=== PATIENT | male | born 1965 | race Caucasian/White ===

== ENCOUNTER → 2017-03-31 | Outpatient (CLI) | payer BC, SELFPAY ==
--- NOTE | 2017-03-31 15:13 | MRI ---
EXAM DESCRIPTION: MRI chest/brachial plexus CLINICAL HISTORY: Anterior chest pain radiating towards the axilla. Pain and numbness into the left upper extremity COMPARISON: None. TECHNIQUE: Multiplanar, multisequence MR images of the chest/brachial plexus FINDINGS: No signal abnormality or mass lesion along the left brachial plexus. The muscles around the left chest and shoulder are normal in volume and signal intensity No marrow infiltration or neoplastic marrow lesion identified in the bones included in the [id number] There is no chest wall mass lesion or signal abnormality. No mass or adenopathy within the contents of the chest included in the [id number]-[id number] There are 2 left lobe thyroid nodules the larger of which is 1.5 cm Cervical spondylosis with disc degeneration C4-5, C5-6 and C6-7. Axial images at the C5-6 level demonstrate significant bilateral lateral recess and foraminal narrowing as well as canal stenosis. At the C6-7 level there is evidence of a disc protrusion which apparently impinges the left C7 nerve axial T2 image 20. IMPRESSION: No diagnostic abnormality of the left brachial plexus Evidence of disc protrusion on the left C6-7 impinging left C7 nerve. Consider a dedicated MRI cervical spine for better evaluation 2 thyroid nodules the largest of which is 1.5 cm. Recommend thyroid sonogram for better characterization and determination of appropriate follow up. Electronically signed by: Austin Chilel MD 03/31/2017 3:12 PM CDT
== END | disposition home or self-care (01) ==
LOC: MRI 13:53
PROVIDERS: ATTEND Family Medicine
DX: E04.1 Nontoxic single thyroid nodule (principal)

== ENCOUNTER → 2017-04-04 | Outpatient (CLI) | payer BC ==
--- NOTE | 2017-04-05 15:11 | US ---
THYROID ULTRASOUND Clinical information: Thyroid nodules discovered on MRI Patient risk factors: Personal history of thyroid malignancy: No Family history of thyroid malignancy: Unknown Personal history of radiation: Unknown Personal history of endocrine syndrome: Unknown Prior thyroid ultrasound: None available Prior Biopsy: No FINDINGS Size right lobe: 4.0 cm craniocaudal, 1.9 cm transverse, 1.6 cm anterior-posterior Size left lobe: 4.9 cm craniocaudal, 1.7 cm transverse, 2.1 cm anterior-posterior Size isthmus: 0.58 cm AP. Estimated total number of nodules greater than or equal to 1 cm: 2 Nodule 1: Size: 1.6 x 1.2 x 1.4 cm Location: left mid Composition: solid/almost completely solid (2) Echogenicity: hypoechoic (2) Shape: not [id number] (0) Margins: lobulated/irregular (2) Echogenic foci: peripheral calcifications (2) ACR TI-RADS total points: 7. ACR TI-RADS risk category: TR5 Nodule 2: Size: 1.5 x 1.1 x 1.2 cm Location: left lower Composition: solid/almost completely solid (2) Echogenicity: isoechoic (1) Shape: not [id number] (0) Margins: smooth (0) Echogenic foci: peripheral calcifications (2) ACR TI-RADS total points: 5. ACR TI-RADS risk category: TR4 IMPRESSION: Nodule 1: ACR TI-RADS 2017 5. Recommend: Ultrasound-guided fine needle aspiration ACR TI-RADS recommendations: TR5 (greater than or equal to 7 points) - FNA if greater than or equal to 1 cm, follow-up if 0.5 - 0.9 cm every year for 5 years TR4 (4-6 points) - FNA if greater than or equal to 1.5 cm, follow-up if 1 - 1.4 cm in 1, 2, 3 and 5 years TR3 (3 points) - FNA if greater than or equal to 2.5 cm, follow -up if 1.5 - 2.4 cm in 1, 3 and 5 years TR2 (2 points) and TR1 (0 points) - No FNA or follow-up * ACR TI-RADS recommends that no more than two nodules with the highest ACR TI-RADS total point should be biopsied and no more than four nodules should be followed. Electronically signed by: Jaskaran Aguirre MD 04/05/2017 3:10 PM CDT
== END ==
LOC: US 14:07
PROVIDERS: ATTEND Family Medicine
DX: E04.1 Nontoxic single thyroid nodule (principal)

== ENCOUNTER → 2017-04-11 | Outpatient (CLI) | payer BC ==
--- NOTE | 2017-04-12 11:08 | US ---
EXAM DESCRIPTION: Biopsy of Thyroid CLINICAL HISTORY: 51 yearsMale COMPARISON: Ultrasound of the thyroid 04/04/2017. TECHNIQUE: Procedure was explained to the patient with risks and benefits. The patient gave verbal and written consent. Sterile preparation draping. 1% xylocaine dermal anesthetic. Sterile ultrasound guidance. A total of four passes were made in each nodule; three needle samplings in each nodule with a separate 1.5 inch, 25-gauge needle per sample, and one aspiration in each nodule, with a separate 1.5 inch, 25-gauge needle/10-cc syringe set, per aspiration. Each sample was placed on a separate slide and fixed in 95% alcohol container for later pathologic examination at remote facility. Each aspirate and needle placed in Saccomanno fluid container. Patient tolerated procedure well, with no immediate complications. FINDINGS: Again noted are two nodules in the left lobe with partially calcified borders. The sampling needle and aspiration needle are well demonstrated at the borders. The sampling phase was difficult, due to displacement of the nodule by the needle. It was interpreted that the aspiration needles penetrated each nodule, though this also was difficult to perform. IMPRESSION: Successful, ultrasound-guided sampling and aspiration of partially calcified nodules in the left lobe of the thyroid gland. Technically difficult procedure since the nodules were difficult to penetrate with the needle. Pathology reports are pending. Electronically signed by: Theodore Monroe MD 04/12/2017 11:06 AM CDT Workstation: [id number]
--- NOTE | 2017-04-19 15:19 | US ---
Thyroid Ultrasound Biopsy Nodule 1: Nodule characteristics: Nodule reference number based on prior diagnostic ultrasound: 1 Maximum size: 1.6 cm Location: left mid ACR TI-RADS total points: 7 ACR TI-RADS risk category: TR5 Yes inadequate tissue sample Reason for biopsy: nondiagnostic on prior biopsy Gauge of needle: 25 Number of passes: Two Cytology review: No Complications: None Nodule 2: Nodule characteristics: Nodule reference number based on prior diagnostic ultrasound: 2 Maximum size: 1.5 cm Location: left lower ACR TI-RADS total points: 5 ACR TI-RADS risk category: TR4 Yes inadequate tissue sample Reason for biopsy: nondiagnostic on prior biopsy Gauge of needle: 25 Number of passes: Two Cytology review: No Complications: None IMPRESSION: Successful ultrasound guided fine needle aspiration of thyroid nodule. Electronically signed by: Jaskaran Aguirre MD 04/19/2017 3:18 PM CDT Workstation: [id number]
== END | disposition home or self-care (01) ==
LOC: US 08:32
PROVIDERS: ATTEND Family Medicine
PROC: 0GBG3ZX Excision of Left Thyroid Gland Lobe, Percutaneous Approach, Diagnostic (ICD-10-PCS; principal; 2017-04-11)
PROC: BG44ZZZ Ultrasonography of Thyroid Gland (ICD-10-PCS; 2017-04-11)
DX: E04.1 Nontoxic single thyroid nodule (principal)

== ENCOUNTER → 2017-08-31 | Outpatient (CLI) | payer OTHER ==
--- NOTE | 2017-08-31 23:28 | CT ---
EXAM DATE: 08/31/2017 1:32 PM [employer]. PROCEDURE: CT SINUSES WITHOUT IV CONTRAST. INDICATION: SINUSITIS. COMPARISON: None. TECHNIQUE: Axial CT images of the face were obtained without intravenous contrast. Coronal and sagittal reformatted images are provided. This exam was performed according to our departmental dose-optimization program which includes use of Automated Exposure Control, adjustment of the mA and/or kV according to patient size and/or use of iterative reconstruction technique. FINDINGS: There are postsurgical changes of prior left antrostomy. There is a single large left frontal sinus air cell with a hypoplastic or absent right frontal sinus air cell. The left frontal sinus drainage pathway is patent. Left frontal sinus extends posteriorly causing mild mass effect upon the left frontal lobe. Mild scattered mucosal thickening within the ethmoid air cells. Dominant right sphenoid air cell. The bilateral sphenoid ostia are patent. Minimal mucosal thickening within the bilateral maxillary sinuses. The left antrostomy window is widely patent. The right maxillary ostium is well aerated. Unremarkable nasopharynx. Unremarkable parotid glands and partially visualized muscles of mastication. Intraorbital contents demonstrate no significant abnormalities. Small tectal lipoma. IMPRESSION: Postsurgical changes of the left maxillary sinus. Scattered mucosal thickening throughout the paranasal sinuses without outflow tract obstruction. Enlarged left frontal sinus air cell and hypoplastic or aplastic right frontal sinus. The left frontal sinus air cell extends posteriorly causing mild mass effect upon the left frontal lobe. Electronically signed by: Kurt Monzon MD 08/31/2017 11:27 PM [employer]
== END | disposition home or self-care (01) ==
LOC: CT 10:13
PROVIDERS: ATTEND Otolaryngology Otolaryngology/Facial Plastic Surgery
DX: J32.2 Chronic ethmoidal sinusitis (principal); J34.3 Hypertrophy of nasal turbinates; J33.0 Polyp of nasal cavity

== ENCOUNTER 2017-09-21 06:16 | Day surgery (SDC) | payer BC, OTHER ==
[2017-09-21] MEDS ORDERED: LACTATED RINGERS 1,000 ML ONE (06:45)
[2017-09-21] MEDS ORDERED: PROPOFOL 200 MG/20 ML VIAL IV ONE (07:00)
[2017-09-21 07:58] VITALS: TEMP 97.4
--- NOTE | 2017-09-21 09:15 | OP ---
DATE OF PROCEDURE: 09/21/17 PREOPERATIVE DIAGNOSIS: 1. Colon cancer screen. POSTOPERATIVE DIAGNOSIS: 1. Normal colon to the cecum. PROCEDURE: 1. Colonoscopy. SURGEON: Kurt Clark MD. ANESTHESIA: MAC by Felipe Luna CRNA. ESTIMATED BLOOD LOSS: None. COMPLICATIONS: None apparent. TECHNIQUE: After informed consent was obtained from the patient, the patient was taken to the Endoscopy Suite and put in the left lateral decubitus position. After adequate IV sedation was obtained, a digital rectal exam was performed. No hemorrhoids were noted. Sphincter tone was decreased. Prostate was smooth, 1+ and anodular. There were no intraluminal masses. The colonoscope was then passed with good visualization all the way through the colon. The bowel prep was excellent The cecum was identified by the presence of ileocecal valve and appendiceal orifice. The scope was then withdrawn slowly over the next 10 minutes and a good look at the entire colonic mucosa was obtained. There were no inflammation or other changes noted to the colon wall. There were no masses, no diverticula or any other problems found. This was a normal examination. The scope was removed. The patient tolerated the procedure well. The patient was transported to the outpatient area in good condition. He will followup p.r.n. #[id number] [facility]
[2017-09-21 10:21] VITALS: BP 113/74; O2SAT 96
== END 2017-09-21 09:25 | disposition home or self-care (01) ==
LOC: AMB 06:16
PROVIDERS: ATTEND Family Medicine
DX: Z12.11 Encounter for screening for malignant neoplasm of colon (principal); I10 Essential (primary) hypertension; J30.9 Allergic rhinitis, unspecified; F41.9 Anxiety disorder, unspecified; E78.00 Pure hypercholesterolemia, unspecified; E78.2 Mixed hyperlipidemia; Z79.82 Long term (current) use of aspirin; Z79.899 Other long term (current) drug therapy
CPT/HCPCS: 00812; 45378; J3490; J7120

== ENCOUNTER → 2017-11-09 | Outpatient (CLI) | payer BC ==
--- NOTE | 2017-11-09 12:16 | MRI ---
EXAM DESCRIPTION: Brain w/o Contrast: MRI. CLINICAL HISTORY: HEADACHE COMPARISON: CT sinuses 08/31/2017. TECHNIQUE: Multiplanar, high-field MRI unit, multiple diffusion sequences, multiple conventional sequences without contrast. FINDINGS: Focal bright round T1 signal posterior to the left-sided inferior and superior colliculi and tectum, to the left of the cerebral aqueduct. Slightly less bright on FLAIR sequences, dark on GRE sequence, and intermediate signal T2 weighted. No diffusion restriction, dark on SBO diffusion. Normal FLAIR and T2-weighted signal in the periventricular white matter and argueta-white matter junctions of the cerebral hemispheres. . Normal signal in the bilateral basal ganglia. No hemorrhage, no cerebral edema, no mass-effect. Normal signal in the brainstem and cerebellar hemispheres. No hemorrhage, no cerebral edema, no mass-effect. Concordance of the diffusion and non-diffusion sequences with no diffusion restriction. Cortical sulci, ventricles, and other CSF spaces, and the subdural spaces are otherwise normally configured. No effacement or displacement. No midline shift. No extra-axial hemorrhage. Normal flow signal void in the major vessels of the [place], and the venous sinuses. IACs are symmetric bilaterally. Normal signal in the bilateral mastoid air cells. No mass effect in the bilateral cerebellopontine angles. Pituitary gland occupies most of the sella. Base of the cerebellar tonsils is slightly above the foramen magnum. Prior medial left antrostomy and left middle turbinectomy. Diffuse mucoperiosteal thickening. Single large left frontal sinus cavity with mucoperiosteal thickening. The bony calvarium is intact. IMPRESSION: 1. Subcentimeter mass abutting the left inferior colliculi/tectum, lateral to the the cerebral aqueduct with MRI characteristics of lipoma (bright T1, dark T2*GRE, bright FLAIR). Also fatty density on prior CT scan. 10-15% of intracranial lipomas are located in this region. No mass effect or cerebral edema or hemorrhage. No further imaging workup is recommended. 2. No intra-axial extra-axial hemorrhage , no mass effect cerebral edema or midline shift. Normal noncontrast MRI diffusion study with no evidence of acute or subacute infarction. Intra-axial and extra-axial CSF spaces are normally configured. Electronically signed by: Theodore Monroe MD 11/09/2017 12:15 PM [facility]
== END ==
LOC: MRI 07:00
PROVIDERS: ATTEND Family Medicine
DX: R51 Headache (principal)

== ENCOUNTER → 2017-11-16 | Outpatient (CLI) | payer BC ==
--- NOTE | 2017-11-16 18:46 | MRI ---
EXAM DESCRIPTION: Cervical Spine: MRI. CLINICAL HISTORY: CERVICALGIA COMPARISON: MRI scan brain 11/09/2017. TECHNIQUE: Multiplanar MRI, multiple sequences, non-contrast High-field. FINDINGS: C3-4: Disc and disc space unremarkable. Right uncinate spur with moderate narrowing of the right neural foramen. Left neuroforamen and canal patent. Facets are unremarkable. C4-5: Minimal disc desiccation with disc space preserved. Posterior midline 2 mm bulge almost abutting the cord. Bilateral disc bulge into the foramina. Bilateral uncinate spurs. Right intraforaminal disc protrusion 4 mm with neural foraminal stenosis. Impinging the right C5 nerve. Bilateral facets normal. Moderate left neural foraminal narrowing. Right paracentral canal narrowing. C5-6: Disc desiccation and minimal disc space loss. Anterior disc bulging. Posterior disc bulging in the midline and right paracentral disc osteophyte combination impressing on the right ventral cord. Uncinate spur and neural foraminal stenosis. Mild arthrosis right facet. Left uncinate spur and mild neural foraminal stenosis. Right paracentral mild canal stenosis. Correlate for bilateral C6 radiculopathy. Normal left facet. C6-7: Disc desiccation minimal anterior disc space loss and anterior disc bulging. Posterior midline disc bulge 3 mm abutting the cord, but left paracentral 5 mm protrusion impressing on the left ventral cord and the left C7 nerve root. Mild right neural foraminal stenosis and severe left neural foraminal stenosis left paracentral mild canal stenosis. Bilateral facets are normal. Normal signal in the remaining discs with no bulging. Disc spaces preserved. Canal and neural foramina are patent. Facets negative No cord compression or cord edema. Spine is slightly kyphotic. Atlantoaxial joint is unremarkable. Base of the cerebellar tonsils is at the level of the the foramen magnum. Paravertebral soft tissues negative. Vertebral bodies are not compressed at any level. Normal marrow signal in the remaining vertebral bodies and the posterior elements. IMPRESSION: 1. C4-5 disc bulge in the midline and right paracentral and intraforaminal disc protrusion encroaching on the right neural foramen with stenosis. Correlate for right C5 radiculopathy. 2. Posterior C5-6 disc bulge. Right paracentral disc osteophyte combination impressing on the right ventral cord. Uncinate spur and right neural foraminal stenosis. Mild paracentral mild canal stenosis. Mild left neural foraminal stenosis. Correlate for bilateral C6 radiculopathy. 3. Posterior midline C6-7 disc bulge with left paracentral disc protrusion encroaching on the left ventral cord and abutting the left C7 nerve root. Left neural foraminal stenosis and paracentral mild canal stenosis. Correlate for left C7 radiculopathy. Electronically signed by: Theodore Monroe MD 11/16/2017 6:44 PM [facility]
== END ==
LOC: MRI 06:58
PROVIDERS: ATTEND Family Medicine
DX: M50.121 Cervical disc disorder at C4-C5 level with radiculopathy (principal); M50.122 Cervical disc disorder at C5-C6 level with radiculopathy; M50.123 Cervical disc disorder at C6-C7 level with radiculopathy

== ENCOUNTER 2018-01-10 05:43 | Day surgery (SDC) | payer BC ==
[2018-01-10] MEDS ORDERED: LACTATED RINGERS 1,000 ML ONE (06:39)
[2018-01-10] MEDS ORDERED: SODIUM CHL 0.9% 100ML MINI-BAG 100 ML IVPB ONE (06:39)
[2018-01-10] MEDS ORDERED: ceFAZolin SODIUM 1 GM VIAL ONE (06:39)
[2018-01-10] MEDS ORDERED: PROPOFOL 200 MG/20 ML VIAL IV ONE (10:00)
[2018-01-10] MEDS ORDERED: LIDOCAINE 1% 50 ML VIAL INJ ONE (11:03)
[2018-01-10] MEDS ORDERED: BUPIVACAINE 0.25% INJ 30 ML VIAL INJ ONE (11:03)
[2018-01-10] MEDS: ceFAZolin SODIUM 1 GM VIAL ONE ×2 (11:42→11:54)
[2018-01-10] MEDS: VANCOMYCIN HCL INJ 1,000 MG VIAL IVPB ONE ×2 (11:42→11:54)
[2018-01-10 12:51] VITALS: BP 128/70; TEMP 97.5; O2SAT 98
--- NOTE | 2018-01-10 13:40 | OP ---
DATE OF PROCEDURE: 01/10/18 PREOPERATIVE DIAGNOSIS: 1. Carpal tunnel syndrome. POSTOPERATIVE DIAGNOSIS: 1. Carpal tunnel syndrome. PROCEDURE: 1. Carpal tunnel release. SURGEON: Lorne Gonzáles MD. SCHOOL PSYCHOLOGICAL EXAMINER: Theodore Allen CST, SA-C. ANESTHESIA: Local with sedation. COMPLICATIONS: None. FINDINGS: Thickened the transverse carpal ligament and narrowing of the median nerve across the carpal tunnel. INDICATION: Dejon has a history of carpal tunnel syndrome with pain and subjective numbness. He has had an EMG which indicates diagnosis of carpal tunnel syndrome on both the right and left sides. He has requested operative intervention. After discussing the risks, benefits and alternatives to that, the patient has given informed consent for carpal tunnel release. PROCEDURE: The patient was brought to the Operating Room and placed in the supine position. Sedation was administered and local anesthetic was injected into the operative area under sterile conditions. After the injection of anesthetic, the arm was sterilely prepped and draped. A longitudinal incision was made directly overlying the transverse carpal ligament and blunt dissection was carried down to the ligament. The transverse carpal ligament was sharply transected along its length and a Grafton elevator was used to ensure complete release of the ligament. Once release had been confirmed, the wound was thoroughly irrigated and the wound was closed with Nylon suture. A sterile dressing was placed and the patient was taken to the Day Surgery Unit. POSTOPERATIVE INSTRUCTIONS: The patient has been encouraged to do range of motion of the digits and will followup with us in two days. #[id number] MTDD
== END 2018-01-10 12:35 | disposition home or self-care (01) ==
LOC: AMB 05:43
PROVIDERS: ATTEND Orthopaedic Surgery
DX: G56.01 Carpal tunnel syndrome, right upper limb (principal); E89.0 Postprocedural hypothyroidism; Z79.899 Other long term (current) drug therapy
CPT/HCPCS: 01810; 64721; 87070; 87077; J0690; J3370; J3490; J7050; J7120

== ENCOUNTER → 2018-01-15 | Outpatient (CLI) | payer BC | LOC: RESP 08:38 | PROVIDERS: ATTEND Orthopaedic Surgery | DX: Z01.818 Encounter for other preprocedural examination (principal) ==

== ENCOUNTER 2018-01-31 05:40 | Day surgery (SDC) | payer BC ==
--- NOTE | 2018-01-29 09:57 | HP ---
CHIEF COMPLAINT: 1. Left finger numbness. 2. Left wrist pain. HISTORY OF PRESENT ILLNESS: Dejon is a 52-year-old male with a history of numbness especially in the index finger of the left hand. He also has a mass on the volar aspect of the left wrist. He has had this going on for months and states the numbness has continued and now is present on a continual basis. Dejon says the cyst has been there also for months. We have talked about possible intervention and he has had an EMG indicating the presence of carpal tunnel. After discussing the risks, benefits and alternatives to carpal tunnel release, the patient has given informed consent. He has also given consent for excision of the cyst which he has requested at the time of his carpal tunnel release. PAST SURGICAL HISTORY: 1. Thyroidectomy. 2. Right carpal tunnel release. MEDICATIONS: 1. Citalopram. 2. Xyzal. 3. Zocor. 4. Lisinopril. 5. Singulair. 6. Zyrtec. 7. Fluticasone. 8. Fish oil. 9. Aspirin. 10. Celebrex. ALLERGIES: NO KNOWN DRUG ALLERGIES. CODE STATUS: Full code. IMMUNIZATIONS: Up to date. SOCIAL HISTORY: The patient does not smoke or use any illicit drugs. He does drink on occasion. FAMILY HISTORY: None pertinent to today's complaint. REVIEW OF SYSTEMS: Negative except as indicated in the History of Present Illness. PHYSICAL EXAMINATION: VITAL SIGNS: Blood pressure 107/88. Pulse 69. Height 5'7". Weight 165 pounds. MENTAL STATUS: The patient is awake, alert, and is able to give a good history and participate in the physical. The patient is oriented to person, place and time. SKIN: Normal tone and turgor. MUSCULOSKELETAL: He has obvious palpable cyst measuring about 1 cm by 1 cm. He has intact sensation throughout the extremity right now with the exception of the index finger. Carpal compression does cause some discomfort, but no increase in his numbness. The mass on the wrist is compressible, but nonpulsatile. ASSESSMENT: 1. Carpal tunnel syndrome. 2. Ganglion cyst. PLAN: The plan at this point is carpal tunnel release as well as excision of his ganglion cyst. We have discussed the risks, benefits, and alternatives to that and the patient has given informed consent. #[id number] [facility]
[2018-01-31] MEDS ORDERED: ceFAZolin SODIUM 1 GM VIAL ONE (05:45)
[2018-01-31] MEDS ORDERED: SODIUM CHL 0.9% 100ML MINI-BAG 100 ML IVPB ONE (05:45)
[2018-01-31] MEDS ORDERED: LACTATED RINGERS 1,000 ML ONE (05:45)
[2018-01-31] MEDS ORDERED: LIDOCAINE 1% 10 ML VIAL INJ ONE ×2 (09:03→10:00)
[2018-01-31] MEDS ORDERED: BUPIVACAINE 0.25% INJ 30 ML VIAL INJ ONE (09:03)
[2018-01-31] MEDS ORDERED: fentaNYL CITRATE INJ 50 MCG/ML AMP ONE (09:13)
[2018-01-31] MEDS ORDERED: MIDAZOLAM INJ 2 MG/2 ML VIAL ONE (09:13)
[2018-01-31] MEDS: VANCOMYCIN HCL INJ 1,000 MG VIAL IVPB ONE ×2 (09:43→10:05)
[2018-01-31] MEDS: ceFAZolin SODIUM 1 GM VIAL ONE ×2 (09:43→10:05)
[2018-01-31] MEDS ORDERED: PROPOFOL 200 MG/20 ML VIAL IV ONE (10:00)
[2018-01-31 11:24] VITALS: BP 146/90; TEMP 97.8; O2SAT 98
--- NOTE | 2018-02-07 09:06 | OP ---
DATE OF PROCEDURE: 01/31/18 PREOPERATIVE DIAGNOSIS: 1. Carpal tunnel syndrome, left hand. 2. Ganglion cyst, left wrist. POSTOPERATIVE DIAGNOSIS: 1. Carpal tunnel syndrome, left hand. 2. Ganglion cyst, left wrist. PROCEDURE: 1. Carpal tunnel release. 2. Excision of ganglion cyst. SURGEON: Lorne Gonzáles MD. GOSPEL WORKER: Theodore Allen CST, ANALI. ANESTHESIA: Local with sedation. COMPLICATIONS: None. FINDINGS: 1. Thickened of the transverse carpal ligament with narrowing of the median nerve across the carpal tunnel. 2. Approximately 1 cm cyst filled with thick, gelatinous fluid. INDICATION: Dejon has a history of numbness in the digits predominantly in the index finger. He has also had a mass that fluctuates in size on the volar aspect of the wriest. He has requested operative intervention for both of these. After discussing the risks, benefits and alternatives to that, the patient has given informed consent for that. PROCEDURE: The patient was brought to the Operating Room and placed in the supine position. Sedation was administered and local anesthetic was injected into the operative area under sterile conditions. After the injection of anesthetic, the arm was sterilely prepped and draped. A longitudinal incision was made directly overlying the transverse carpal ligament and blunt dissection was carried down to the ligament. The transverse carpal ligament was sharply transected along its length and a Thompson elevator was used to ensure complete release of the ligament. Once release had been confirmed, the wound was thoroughly irrigated and the wound was closed with Nylon suture. Attention was then focused on the cystic lesion. An incision was made directly overlying the mass. Blunt dissection was carried down to the mass and the mass was cored out. The mass was punctured and did contain gelatinous fluid consistent with a ganglion cyst. The wound was very thoroughly irrigated and closed with Nylon suture. Sterile dressings were placed on both the incision for the carpal tunnel release as well as the ganglion cyst excision site. The patient was taken to the Day Surgery Unit. POSTOPERATIVE INSTRUCTIONS: The patient has been encouraged to do range of motion of the digits and will followup with us in two days. #[id number] [facility] HOSPITALBecky
== END 2018-01-31 10:55 | disposition home or self-care (01) ==
LOC: AMB 05:40
PROVIDERS: ATTEND Orthopaedic Surgery
DX: G56.02 Carpal tunnel syndrome, left upper limb (principal); M67.432 Ganglion, left wrist; E89.0 Postprocedural hypothyroidism; I10 Essential (primary) hypertension; Z79.82 Long term (current) use of aspirin; Z79.899 Other long term (current) drug therapy
CPT/HCPCS: 01810; 25111; 64721; J0690; J2250; J3010; J3370; J3490; J7050; J7120

== ENCOUNTER 2018-02-03 18:05 | Emergency (ER) | payer BC ==
--- NOTE | 2018-02-03 18:21 | ED.PDOC ---
History of Present Illness - General Chief Complaint: Trauma Stated Complaint: Fell, back pain Time Seen by Provider: 02/03/18 18:13 Source: patient Exam Limitations: no limitations - History of Present Illness Initial Comments: Dejon Dewey 52 y/o male stated as he was coming out of the bathroom at [facility]-here in [place] stated stepped on the wet floor and fell mid back hitting a wooden wall with sharp pain between his shoulder blade more on left side after incident.Denies head , neck pain or hip pain ,no blurry vision.No weakness,no numbness extremities. Occurred: just prior to arrival Severity: moderate Injuries/Pain Location: other - mid back Reason for Fall: slipped Loss of Consciousness: no loss of consciousness Improving Factors: nothing Worsening Factors: movement Associated Symptoms (Fall): other - PAIN Allergies/Adverse Reactions: Allergies NO KNOWN ALLERGY Allergy (Verified 09/19/17 09:24) Home Medications: Ambulatory Orders Aspirin [Aspirin Adult Low Dose] 81 mg PO BEDTIME 09/19/17 Cholecalciferol [Vitamin D3] 5,000 unit PO BEDTIME 09/19/17 Citalopram Hydrobromide [Celexa] 10 mg PO BEDTIME 09/19/17 Levocetirizine Dihydrochloride [Levocetirizine Dihydrochl] 5 mg PO BEDTIME 09/19 Lisinopril [Zestril] 20 mg PO BEDTIME 09/19/17 Montelukast [Singulair] 10 mg PO BEDTIME 09/19/17 Multiple Vitamin [Multi Vitamin] 1 tab PO BEDTIME 09/19/17 Simvastatin [Zocor] 20 mg PO BEDTIME 09/19/17 Review of Systems - Review of Systems Constitutional: States: no symptoms reported EENTM: States: no symptoms reported Respiratory: States: no symptoms reported Genitourinary: States: no symptoms reported Musculoskeletal: States: see HPI Neurological: States: no symptoms reported Past Medical History (General) - Patient Medical History Hx Congestive Heart Failure: No Hx Hypertension: Yes Hx Diabetes: No Hx MRSA: No Surgical History: other - bilateral CTS,partial thyroidectomy Physical Exam - Physical Exam General Appearance: Alert, Comfortable, No apparent distress Head Injury: no evidence of injury Eye Exam: bilateral normal ENT Exam: hearing grossly normal, no evidence of ENT injury, no dental injury Peripheral Pulses: radial,right: 2+, radial,left: 2+ Cardiovascular/Respiratory: regular rate, rhythm, no M/R/G, normal peripheral pulses, normal breath sounds Gastrointestinal/Abdominal: non tender, soft Back Exam: normal inspection, other - tenderness mid back Extremity Exam: no evidence of injury, normal range of motion, non-tender, pelvis stable Neurologic: no motor/sensory deficits, alert, oriented x 3 Skin Exam: normal color, warm/dry - [place] Coma Score Best Eye Response ([place]): (4) open spontaneously Best Verbal Response ([place]): (5) oriented Best Motor Response ([place]): (6) obeys commands [place] Total: 15 Progress - Progress Progress: 02/03/18 19:04 Vital Signs - 8 hr 02/03/18 18:52 Pulse Rate [ 95 H right brachial] Respiratory 20 Rate Blood Pressure 141/91 [right brachial ] O2 Sat by Pulse 95 Oximetry - EKG/XRAY/CT CT Ordered: Yes - t- spine :no fracture Departure - Departure Clinical Impression: Fall against object Contusion of back wall of thorax Qualifiers: Encounter type: initial encounter Laterality: unspecified laterality Qualified Code(s): S20.229A - Contusion of unspecified back wall of thorax, initial encounter Time of Disposition: 19:05 Disposition: Discharge to Home or Self Care Condition: Good Departure Forms: ED Discharge - Pt. Copy, Patient Portal Self Enrollment Instructions: DI for Contusion Referrals: Kurt Clark MD [Primary Care Provider] - 1-2 Weeks Home Medications: Ambulatory Orders Aspirin [Aspirin Adult Low Dose] 81 mg PO BEDTIME 09/19/17 Cholecalciferol [Vitamin D3] 5,000 unit PO BEDTIME 09/19/17 Citalopram Hydrobromide [Celexa] 10 mg PO BEDTIME 09/19/17 Levocetirizine Dihydrochloride [Levocetirizine Dihydrochl] 5 mg PO BEDTIME 09/19 Lisinopril [Zestril] 20 mg PO BEDTIME 09/19/17 Montelukast [Singulair] 10 mg PO BEDTIME 09/19/17 Multiple Vitamin [Multi Vitamin] 1 tab PO BEDTIME 09/19/17 Simvastatin [Zocor] 20 mg PO BEDTIME 09/19/17 Additional Instructions: May take Aleve 1-2 tablets am/pm for pain as needed
[2018-02-03] MEDS ORDERED: HYDROcodone 10MG/APAP 325MG 1 EA TAB PO ONE (18:23)
[2018-02-03] MEDS ORDERED: KETOROLAC TROMETHAMINE INJ 30 MG/ML VIAL IM ONE (18:23)
[2018-02-03] MEDS ORDERED: ORPHENADRINE CITRATE 30 MG/ML AMP IM ONE (18:23)
--- NOTE | 2018-02-03 18:57 | CT ---
PROCEDURE: Thoracic Spine CLINICAL HISTORY: 52 years ,Male ,fall/thoracic pain COMPARISON: None. TECHNIQUE: Contiguous axial images obtained through the thoracic spine without IV contrast. Coronal and sagittal reformatted images obtained. This exam was performed according to our department optimization program which includes automated exposure control, adjustment of the mA and/or kv according to patient size and/or use of iterative reconstruction technique. FINDINGS: Vertebral body alignment unremarkable. No acute thoracic spine fractures. IMPRESSION: No acute thoracic spinal fracture is identified. . Electronically signed by: Thedoore Perry 02/03/2018 6:56 PM CDT
[2018-02-03] MEDS ORDERED: HYDROCOD/APAP 10/325 (ER DISP) # 3 tablets PO ONE (19:09)
[2018-02-03 19:42] VITALS: BP 149/90
[2018-02-03 19:46] VITALS: TEMP 98.2; O2SAT 98
== END 2018-02-03 19:45 | disposition home or self-care (01) ==
LOC: ER 18:05
DX: S20.229A Contusion of unspecified back wall of thorax, initial encounter (principal); I10 Essential (primary) hypertension; Z79.82 Long term (current) use of aspirin; W01.198A Fall on same level from slipping, tripping and stumbling with subsequent striking against other object, initial encounter; Y92.512 Supermarket, store or market as the place of occurrence of the external cause
CPT/HCPCS: 72128; J1885; J2360

== ENCOUNTER → 2018-02-07 | Outpatient (CLI) | payer BC ==
--- NOTE | 2018-02-08 14:11 | MRI ---
EXAM DESCRIPTION: Cervical Spine: MRI. CLINICAL HISTORY: CERVICAL RADICULOPATHY, CERVICAL DISC DISORDER WITH RADICULOPATHY COMPARISON: MRI scan cervical spine 11/16/2017. TECHNIQUE: Multiplanar MRI, multiple sequences, non-contrast high-field cervical spine. FINDINGS: C3-4: Disc desiccation and tiny posterior disc bulge. Right uncinate spur and mild to moderate neural foraminal narrowing. Left uncinate spur and disc bulge into the left foramen moderate neural foraminal narrowing. Mild canal narrowing. Facets are unremarkable. C4-5: Disc desiccation and posterior midline bulge. Right uncinate spur and mild right facet arthrosis with right neural foraminal stenosis. Left uncinate spur and mild neural foraminal narrowing. Mild canal narrowing. Trace anterolisthesis. C5-6: Disc desiccation moderate disc space loss anterior bulging and endplate ridging. Bilateral uncinate spurs. Posterior broad-based disc bulge or protrusion abutting the ventral cord and the right C6 nerve. Bilateral neural foraminal stenosis. Right paracentral mild canal stenosis. Bilateral mild facet arthrosis. C6-7: Disc desiccation with anterior minimal bulging and endplate ridging. Posterior disc bulge and bilateral uncinate spurs. Bilateral mild facet arthrosis. Posterior disc bulge with disc protrusion to the left of midline abutting the left C7 nerve and left ventral cord left neural foraminal stenosis. Left paracentral mild canal stenosis.. Borderline right neural foraminal stenosis Normal signal in the remaining discs with no bulging. Disc spaces preserved. Canal and neural foramina are patent. Facets are unremarkable No significant scoliosis. Spine is kyphotic C4-C6. No cord compression or cord edema. Atlantoaxial joint is unremarkable. Base of the cerebellar tonsils is at the level of the foramen magnum. Paravertebral soft tissues show decreased size left thyroid lobe.. Vertebral bodies are not compressed at any level. Normal marrow signal in the remaining vertebral bodies and the posterior elements. IMPRESSION: 1. Bilateral uncinate spurs and facet arthrosis at C6-7 with left posterior disc bulge or focal protrusion. Left paracentral mild canal stenosis. Bilateral neural foraminal stenosis. No significant change since the prior study. Correlate for bilateral C7 radiculopathy. 2. C5-6 disc degeneration and right posterior bulge or herniation abutting the cord in the right C6 nerve. Right paracentral mild canal stenosis. Bilateral neural foraminal stenosis. Correlate for bilateral C6 radiculopathy. 3. Right neural foraminal stenosis at C4-5. Correlate for right C5 radiculopathy. No significant change since the prior study. 4. Spur disc complex bulging into the left C3-4 neural foramen. Correlate for left C4 radiculopathy. Electronically signed by: Theodore Monroe MD 02/08/2018 2:10 PM CDT
== END ==
LOC: MRI 13:22
PROVIDERS: ATTEND Family Medicine
DX: M50.10 Cervical disc disorder with radiculopathy, unspecified cervical region (principal)

== ENCOUNTER 2019-01-16 22:19 | Emergency (ER) | payer BC ==
--- NOTE | 2019-01-16 23:55 | ED.PDOC ---
History of Present Illness - General Chief Complaint: Behavioral / Psych Stated Complaint: having suicidal thoughts, unable to think straight Time Seen by Provider: 01/16/19 23:49 Source: patient, Vital Signs reviewed Additional Information: 53 YEAR OLD WHITE MALE PRESENTS WITH SUICIDAL IDEATION AND HOMICIDAL THOUGHTS TONIGHT HE HAS BEEN DEALING WITH MEDICAL ISSUES IN THE RECENT PAST SEEN DR BRIGGS FOR SEIZURES ON TEGRETOL AND FOUND TO HAVE ABNORMALLY LARGE LEFT FRONTAL SINUS HE HAS HAD WORK UP BY ENT DR PACE AND SEEN DR HUBBARD NEUROSURGEON ON CONSULT BUT THEY TOLD HIM THAT THIS LARGE LEFT FRONTAL SINUS DOES NOT REQUIRE SURGICAL INTERVENTION HE REPORTS " FOGGY BRAIN " HE ADMITS TO EPISODES OF UNCONTROLLABLE CRYING FEELING DEPRESSED HE THINKS HE IS GOING TO [facility] 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 HIS MOTHER HAS ANXIETY DISORDER 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 NOW AFTER THE MRI SHOWING A LARGE LEFT FRONTAL SINUS HE THINKS THAT IS SOMETHING IF NOT OPERATED WOULD KILL HIM - History of Present Illness Timing/Duration: 4-6 hours Improving Factors: nothing Worsening Factors: nothing Associated Symptoms: denies symptoms Allergies/Adverse Reactions: Allergies NO KNOWN ALLERGY Allergy (Verified 09/19/17 09:24) Home Medications: Ambulatory Orders Aspirin [Aspirin Adult Low Dose] 81 mg PO BEDTIME 09/19/17 Cholecalciferol [Vitamin D3] 5,000 unit PO BEDTIME 09/19/17 Citalopram Hydrobromide [Celexa] 10 mg PO BEDTIME 09/19/17 Lisinopril [Zestril] 20 mg PO BEDTIME 09/19/17 Montelukast [Singulair] 10 mg PO BEDTIME 09/19/17 Multiple Vitamin [Multi Vitamin] 1 tab PO BEDTIME 09/19/17 Simvastatin [Zocor] 20 mg PO BEDTIME 09/19/17 Eszopiclone [Lunesta] 3 mg PO BEDTIME 01/16/19 Levocetirizine Dihydrochloride [Xyzal Allergy 24Hr] 5 mg PO BEDTIME 01/16/19 Oxcarbazepine [Trileptal] 150 mg PO BID 01/16/19 Vortioxetine HBr [Brintellix] 10 mg PO DAILY 01/16/19 Review of Systems - Review of Systems Constitutional: States: no symptoms reported EENTM: States: ear pain Respiratory: States: no symptoms reported Cardiology: States: no symptoms reported Gastrointestinal/Abdominal: States: no symptoms reported Genitourinary: States: no symptoms reported Skin: States: no symptoms reported Neurological: States: see HPI Endocrine: States: no symptoms reported Hematologic/Lymphatic: States: no symptoms reported Past Medical History (General) - Patient Medical History Hx Seizures: Yes Hx Stroke: No Hx Dementia: No Hx Asthma: No Hx of COPD: No Hx Cardiac Disorders: No Hx Congestive Heart Failure: No Hx Pacemaker: No Hx Hypertension: Yes Hx Thyroid Disease: Yes - 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 removed Hx Diabetes: No Hx Renal Disease: No Hx Cancer: No Hx Hepatitis C: No Hx MRSA: No Surgical History: other - Vaccination History Hx Tetanus, Diphtheria Vaccination: No Hx Influenza Vaccination: No Hx Pneumococcal Vaccination: No - Social History Hx Tobacco Use: No Hx Alcohol Use: No Hx Substance Use: No Hx Substance Use Treatment: No Hx Depression: Yes Feels Threatened In Home Enviroment: No Feels Threatened In a Relationship: No Family Medical History - Family History Father Family History: No Known Living Status: Still Living Mother Living Status: Hx Family;Other: paranoia Physical Exam - Physical Exam General Appearance: Anxious, No apparent distress Eye Exam: bilateral normal Ears, Nose, Throat: hearing grossly normal, normal ENT inspection, normal pharynx, abnormal TM (R) Neck: non-tender, full range of motion, supple Respiratory: chest non-tender, lungs clear, normal breath sounds, no respiratory distress, no accessory muscle use Cardiovascular/Chest: normal peripheral pulses, regular rate, rhythm, no edema, no gallop, no JVD, no murmur Gastrointestinal/Abdominal: normal bowel sounds, non tender, soft, no organomegaly, no pulsatile mass Neurologic: baker II-XII nml as tested, no motor/sensory deficits, alert, oriented x 3 Progress - Results/Orders Results/Orders: DISCUSSED WITH DR CHERI COSTELLO AT [facility] WHO WILL TAKE HIM A INPATIENT PSYCH EVALUATION CASE WAS DISCUSSED WITH HIM DR CASTANO WHO IS WITH THE PATIENT KINDLY AGREED TO TAKE HIM TO [facility] Departure - Departure Clinical Impression: Psychological disorder, Psychological stress, Suicidal ideations, Homicidal ideations Time of Disposition: 00:37 Disposition: Transfer to Hospital Condition: Fair Departure Forms: ED Discharge - Pt. Copy, Patient Portal Self Enrollment Instructions: DI for Psychosis Referrals: Kurt Clark MD [Primary Care Provider] - 1-2 Weeks Home Medications: Ambulatory Orders Aspirin [Aspirin Adult Low Dose] 81 mg PO BEDTIME 09/19/17 Cholecalciferol [Vitamin D3] 5,000 unit PO BEDTIME 09/19/17 Citalopram Hydrobromide [Celexa] 10 mg PO BEDTIME 09/19/17 Lisinopril [Zestril] 20 mg PO BEDTIME 09/19/17 Montelukast [Singulair] 10 mg PO BEDTIME 09/19/17 Multiple Vitamin [Multi Vitamin] 1 tab PO BEDTIME 09/19/17 Simvastatin [Zocor] 20 mg PO BEDTIME 09/19/17 Eszopiclone [Lunesta] 3 mg PO BEDTIME 01/16/19 Levocetirizine Dihydrochloride [Xyzal Allergy 24Hr] 5 mg PO BEDTIME 01/16/19 Oxcarbazepine [Trileptal] 150 mg PO BID 01/16/19 Vortioxetine HBr [Brintellix] 10 mg PO DAILY 01/16/19
[2019-01-17 00:24] VITALS: O2SAT 98
[2019-01-17 01:14] VITALS: BP 150/92; TEMP 97.6
== END 2019-01-17 01:15 | disposition short-term general hospital (02) ==
LOC: ER 22:19
DX: R45.851 Suicidal ideations (principal); R45.850 Homicidal ideations; F43.9 Reaction to severe stress, unspecified; F54 Psychological and behavioral factors associated with disorders or diseases classified elsewhere; F32.9 Major depressive disorder, single episode, unspecified; I10 Essential (primary) hypertension; R56.9 Unspecified convulsions; E89.0 Postprocedural hypothyroidism; Z79.899 Other long term (current) drug therapy; Z79.82 Long term (current) use of aspirin

== ENCOUNTER 2019-10-01 07:01 | Emergency (ER) | payer BC | END 2019-10-01 07:04 | disposition left against medical advice (07) | LOC: ER 07:01 | DX: M54.9 Dorsalgia, unspecified (principal); Z53.21 Procedure and treatment not carried out due to patient leaving prior to being seen by health care provider ==